=== PATIENT | female | born 1990 | race African-American/Black ===

== ENCOUNTER 2023-12-08 17:07 | Emergency (ER) | payer OTHER ==
[~2023-12-08] VITALS: Ht 160 cm; Wt 70.4 kg
[2023-12-08 18:33] VITALS: BP 135/80; PULSE 89; RESP 18; TEMP 98.3; O2SAT 99
[2023-12-08] MEDS: HYDROcodone-ACET 5/325MG TAB PO ONE (18:58)
[2023-12-08] MEDS ORDERED: AUG875T PO (19:48)
== END 2023-12-08 20:14 | disposition home or self-care (01) ==
LOC: ER 17:15
DX: S61.432A Puncture wound without foreign body of left hand, initial encounter (principal); S30.811A Abrasion of abdominal wall, initial encounter; W54.0XXA Bitten by dog, initial encounter; Y93.89 Activity, other specified; Y92.89 Other specified places as the place of occurrence of the external cause; Y99.0 Civilian activity done for income or pay
CPT/HCPCS: 73130

== ENCOUNTER → 2025-01-04 | Day surgery (SDC) | payer MEDICAID ==
[2025-01-01 09:46] LABS: Hematocrit 29.9 % (36.0-46.0); Hemoglobin 9.5 g/dL (12.2-16.2); Mean Corpuscular Hemoglobin 20.0 pg (28.0-32.0); Mean Corpuscular Volume 63.1 fL (80.0-100.0); Nucleated Red Blood Cells % 0.1 %
[2025-01-01 09:57] LABS: INR 1.03 (0.9-1.15); Partial Thromboplastin Time 25.4 SEC (24.5-34.5); Prothrombin Time 10.9 sec (9.3-11.8)
[2025-01-01 10:17] LABS: Alanine Aminotransferase 12 U/L (7-40); Albumin 4.3 g/dL (3.2-4.8); Alkaline Phosphatase 54 U/L (46-116); Anion Gap 9 (5-15); BUN/Creatinine Ratio 8.5 (10.0-20.0); Bilirubin, Total 0.9 mg/dL (0.2-1.0); Calcium 8.9 mg/dL (8.7-10.4); Carbon Dioxide 25 mmol/L (20-31); Glucose 93 mg/dL (74-106); Potassium 4.2 mmol/L (3.5-5.1); Sodium 142 mmol/L (136-145); Total Protein 7.4 g/dL (5.7-8.2)
[2025-01-01 10:35] LABS: Blood Urea Nitrogen 8 mg/dL (9-23); Chloride 108 mmol/L (98-107)
[2025-01-01 11:07] LABS: Anisocytosis Slight
[~2025-01-04] MED LIST: AUG875T PO
[2025-01-04] MEDS: MIDAZOLAM HCL 2MG/2ML 2ml VIAL (1mg/ml) ONE ×3 (09:12→09:25)
[2025-01-04] MEDS: fentaNYL CITRATE 100 MCG/2 ML VL ONE (09:12)
--- NOTE | 2025-01-04 09:35 | DVHNC2 ---
Procedure - DATE OF PROCEDURE: 2024 SURGEON: GIGI COLLAZO MD REFERRING PROVIDER: Patient does not recall her primary physician PROCEDURE PERFORMED: 1. Esophagogastroduodenoscopy with biopsy under conscious sedation 2. Colonoscopy under conscious sedation PRE-PROCEDURE DIAGNOSIS: 1. Microcytic Anemia POSTPROCEDURE DIAGNOSIS 1. Normal duodenum biopsies taken 2. Mild gastritis biopsies taken 3. Normal esophagus 4. Internal and external hemorrhoids MEDICATIONS USED: 8MG OF VERSED IV AND 100 MCG OF FENTANYL IV DETAILS OF THE PROCEDURE: Informed consent was obtained after risks, benefits, and alternatives, were discussed at length with the patient. The patient gave consent to the procedure as well as the medication used for sedation. The patient was placed in the left lateral decubitus position. An Olympus endoscope was inserted into the oropharynx and advanced into the esophagus, then into the stomach, then into the duodenal bulb and duodenum. The duodenal bulb and duodenum were normal. Biopsies were taken given the anemia. The scope was then withdrawn. The patient had mild erosive gastritis, biopsies were taken. The scope was then withdrawn retroflexion showed no abnormalities, and retained secretions were washed or suctioned off. The scope was then withdrawn the Z-line was at 40 cm. The scope was then withdrawn and procedure completed. The patient tolerated procedure well The patient remained in the left lateral decubitus position. Digital rectal exam showed internal and external hemorrhoids. An Olympus variable torsion pediatric colonoscope was inserted into the rectum and advanced to the cecum. The cecum was identified by the ileocecal valve and the appendiceal orifice. The scope was then withdrawn. [place] bowel prep score of nine was noted. There were no large polyps, masses, strictures, colitis, or arteriovenous malformation seen. Retroflexion showed 2+ internal hemorrhoids. The patient tolerated the procedure well. IMPRESSION: 1. Mild gastritis otherwise normal EGD. 2. Small internal and external hemorrhoids otherwise normal colonoscopy RECOMMENDATIONS: 1. Follow up in GI clinic for procedure and pathology results 2. Iron supplementation 3. Consider further workup for the anemia 4. Consider non GI sources of anemia 5. Consider capsule endoscopy if indicated. 6. Consider hematology referral GIGI COLLAZO MD Jan 04, 2025 09:35
[2025-01-04 09:36] VITALS: PULSE 72; RESP 18; TEMP 97.5; O2SAT 10
[2025-01-04 10:15] VITALS: BP 117/79; PULSE 67; RESP 15; O2SAT 100
== END | disposition home or self-care (01) ==
LOC: GI 07:28
PROVIDERS: ATTEND Specialist
DX: D50.9 Iron deficiency anemia, unspecified (principal); K64.4 Residual hemorrhoidal skin tags; K64.1 Second degree hemorrhoids; K59.00 Constipation, unspecified; Z98.891 History of uterine scar from previous surgery
CPT/HCPCS: 36415; 43239; 45378; 80053; 81025; 85025; 85610; 85730; 88305; 88342; J2250; J3010